=== PATIENT | male | born 1955 | race Two or more races ===

== ENCOUNTER 2022-10-04 11:37 | Outpatient (CLI) | payer OTHER | END 2022-10-04 11:40 | disposition home or self-care (01) | LOC: RAD 11:37 | PROVIDERS: ATTEND Internal Medicine Sports Medicine | DX: I10 Essential (primary) hypertension (principal) ==

== ENCOUNTER 2023-11-01 09:36 | Outpatient (CLI) | payer OTHER | END 2023-11-01 09:42 | disposition home or self-care (01) | LOC: SONOGRAMA 09:36 | PROVIDERS: ATTEND Urology | DX: R31.1 Benign essential microscopic hematuria (principal) ==

== ENCOUNTER 2024-11-11 05:56 | Day surgery (SDC) | payer OTHER ==
[2024-11-11] MEDS ORDERED: DIPHENHYDRAMINE HCL 50 MG/ML VIAL 1ML IV ONE (10:00)
[2024-11-11] MEDS ORDERED: MIDAZOLAM HCL 2 MG/2 ML VIAL IV ONE (10:00)
[2024-11-11] MEDS ORDERED: fentaNYL CITRATE 50 MCG/ML AMPUL IV PUSH ONE (10:00)
== END 2024-11-11 11:00 | disposition home or self-care (01) ==
LOC: AMB-ENDOS 05:56
PROVIDERS: ATTEND Colon & Rectal Surgery
DX: D12.3 Benign neoplasm of transverse colon (principal); K63.5 Polyp of colon

== ENCOUNTER 2024-11-20 15:02 | Outpatient (CLI) | payer OTHER | END 2024-11-20 15:04 | disposition home or self-care (01) | LOC: SONOGRAMA 15:02 | PROVIDERS: ATTEND Urology | DX: N40.1 Benign prostatic hyperplasia with lower urinary tract symptoms (principal); R31.1 Benign essential microscopic hematuria; N20.0 Calculus of kidney; R33.9 Retention of urine, unspecified ==